=== PATIENT | female | born 1995 | race Hispanic/Latino ===

== ENCOUNTER 2022-05-20 18:26 | Emergency (ER) | payer SELFPAY ==
[2022-05-20 19:28] LABS: BHCG - Serum Negative (NEGATIVE); Pregs Control Background? CLEAR/WHITE (CLR/WHITE); Pregs Control Bar Appear? YES (CONTROL BAR)
[2022-05-20 19:30] LABS: #Eosinphils 0.2 thou/uL (0.0-0.7); #Lymphocytes 2.3 thou/uL (1.20-3.40); #Monocytes 0.5 thou/uL (0.11-0.59); #Neutrophils 5.5 thou/uL (1.40-6.50); %Basophils 0.4 % (0.0-1.0); %Eosinophils 2.3 % (0.0-10.0); %Lymphocytes 27.3 % (21.0-51.0); %Monocytes 5.4 % (0.0-10.0); %Neutrophils 64.6 % (42.0-75.0); Hemoglobin 13.9 g/dL (12.0-16.0); Mean Corpuscular HGB CONC 32.6 g/dL (32.0-36.0); Mean Corpuscular Hemoglobin 29.2 pg (27.0-31.0); Mean Corpuscular Volume 89.6 fl (78.0-98.0); Mean Platelet Volume 8.4 fL (7.4-10.4); Platelet Count 219 10x3/uL (130-400); RBC Distribution Width 12.2 % (11.5-14.5); Red Blood Cell (RBC) Count 4.76 mill/uL (4.20-5.40); White Blood Cell (WBC) Count 8.6 10x3/uL (4.8-10.8)
[2022-05-20 19:34] LABS: Bacteria/HPF None Seen HPF (None Seen); Bilirubin Negative (Negative); Blood, Urine Negative (Negative); Clarity Clear (Clear); Glucose, Urine (Dipstick) Normal (Negative); Ketone, Urine Negative (Negative); Leukocyte 250 Leu/uL (Negative); Nitrite Negative (Negative); Protein, Urine (Dipstick) Negative (Neg-Trace); RBC/HPF 0-3 HPF (0-3); Specific Gravity, Urine 1.009 (1.002-1.036); Squamous Epithelial 0-3 HPF (0-3); Urobilinogen Normal mg/dL (Less than 2); pH, Urine 7.5 (5.0-9.0)
[2022-05-20 20:09] LABS: ALT (SGPT) 32 U/L (8-55); AST (SGOT) 33 U/L (5-34); Albumin 4.1 g/dL (3.5-5.0); Alkaline Phosphatase 102 U/L (40-110); Anion Gap 16 mmol/L (10-20); BUN (Urea Nitrogen) 9 mg/dL (7.0-18.7); Bilirubin, Total 0.2 mg/dL (0.2-1.2); Calc. Creatinine Clearance 0 mL/min (70-130); Calcium 9.1 mg/dL (7.8-10.44); Carbon Dioxide 21 mmol/L (22-29); Chloride 107 mmol/L (98-107); Estimated GFR 122; Globulin 3.2 g/dL (2.4-3.5); Glucose 86 mg/dL (70-105); Lipase 33 U/L (8-78); Potassium 4.9 mmol/L (3.5-5.1); Protein, Total 7.3 g/dL (6.0-8.3); Sodium 139 mmol/L (136-145)
[2022-05-20] MEDS ORDERED: Morphine 4 MG/ML VIAL ONE (20:10)
[2022-05-20] MEDS ORDERED: Ketorolac Tromethamine 30 MG/ML VIAL ONE (20:10)
== END 2022-05-20 21:55 | disposition home or self-care (01) ==
LOC: ERS 18:26
DX: K80.20 Calculus of gallbladder without cholecystitis without obstruction (principal); K76.0 Fatty (change of) liver, not elsewhere classified
CPT/HCPCS: 36415; 76705; 80053; 81003; 81015; 83690; 84703; 85025; 93005; 96374; 96375; J1885; J2270

== ENCOUNTER 2022-12-12 15:31 | Observation (INO) | payer SELFPAY ==
[2022-12-12] MEDS ORDERED: Ondansetron PF 4 MG/2 ML Vial ONE (16:48)
[2022-12-12 17:12] LABS: #Eosinphils 0.3 thou/uL (0.0-0.7); #Monocytes 0.5 thou/uL (0.11-0.59); #Neutrophils 6.5 thou/uL (1.40-6.50); %Basophils 0.4 % (0.0-1.0); %Eosinophils 2.7 % (0.0-10.0); %Lymphocytes 26.3 % (21.0-51.0); %Monocytes 5.2 % (0.0-10.0); %Neutrophils 65.1 % (42.0-75.0); Hemoglobin 14.9 g/dL (12.0-16.0); Mean Corpuscular HGB CONC 33.3 g/dL (32.0-36.0); Mean Corpuscular Hemoglobin 29.2 pg (27.0-31.0); Mean Corpuscular Volume 87.5 fl (78.0-98.0); Mean Platelet Volume 9.5 fL (7.4-10.4); Platelet Count 298 10x3/uL (130-400); RBC Distribution Width 13.1 % (11.5-14.5); Red Blood Cell (RBC) Count 5.11 mill/uL (4.20-5.40); White Blood Cell (WBC) Count 9.9 10x3/uL (4.8-10.8)
[2022-12-12 17:33] LABS: ALT (SGPT) 23 U/L (8-55); AST (SGOT) 22 U/L (5-34); Albumin 4.5 g/dL (3.5-5.0); Alkaline Phosphatase 101 U/L (40-110); Anion Gap 10 mmol/L (10-20); BUN (Urea Nitrogen) 8 mg/dL (7.0-18.7); Bilirubin, Total 0.2 mg/dL (0.2-1.2); CRP (Inflammatory) 0.72 mg/dL (= or < 0.5); Calc. Creatinine Clearance 0 mL/min (70-130); Calcium 10.1 mg/dL (7.8-10.44); Carbon Dioxide 27 mmol/L (22-29); Chloride 105 mmol/L (98-107); Estimated GFR 102; Globulin 3.6 g/dL (2.4-3.5); Glucose 95 mg/dL (70-105); Potassium 3.7 mmol/L (3.5-5.1); Protein, Total 8.1 g/dL (6.0-8.3); Sodium 138 mmol/L (136-145)
[2022-12-12 17:50] LABS: BHCG - Serum Negative (NEGATIVE); Pregs Control Background? CLEAR/WHITE (CLR/WHITE); Pregs Control Bar Appear? YES (CONTROL BAR)
[2022-12-12] MEDS ORDERED: Prochlorperazine 10 MG/2 ML VIAL ONE (17:58)
[2022-12-12] MEDS ORDERED: diphenhydrAMINE 50 MG/ML VIAL ONE (17:58)
[2022-12-12] MEDS ORDERED: Ketorolac Tromethamine 30 MG/ML VIAL ONE (17:59)
[2022-12-12 18:33] LABS: Bacteria/HPF 2+ HPF (None Seen); Bilirubin Negative (Negative); Blood, Urine Negative (Negative); CAUTI Indications for Culture Alt mental st,lethar; Clarity Clear (Clear); Glucose, Urine (Dipstick) Normal (Negative); Ketone, Urine Negative (Negative); Leukocyte 500 Leu/uL (Negative); Nitrite Negative (Negative); Protein, Urine (Dipstick) Negative (Neg-Trace); RBC/HPF 0-3 HPF (0-3); Specific Gravity, Urine 1.003 (1.002-1.036); Squamous Epithelial 0-3 HPF (0-3); Urobilinogen Normal mg/dL (Less than 2)
[2022-12-12 18:34] LABS: Urine Culture Reflex No No
[2022-12-12] MEDS ORDERED: Ondansetron ODT 4 MG TAB PO PRN (20:54)
[2022-12-12] MEDS ORDERED: Ondansetron PF 4 MG/2 ML Vial IVP PRN (20:54)
[2022-12-12] MEDS ORDERED: Acetaminophen 325 MG TAB PO PRN (20:54)
[2022-12-12] MEDS ORDERED: hydrALAZINE 20 MG/ML VIAL SLOW IVP PRN (20:54)
[2022-12-12] MEDS ORDERED: Aspirin Chewable 81 MG TAB PO SCH (22:00)
[2022-12-12] MEDS ORDERED: Aspirin Chewable 81 MG TAB ONE (22:21)
[2022-12-12] MEDS: Atorvastatin Calcium 40 MG TAB PO SCH (22:25)
[2022-12-12 23:39] VITALS: BMI 38.0
[2022-12-13 05:11] LABS: #Eosinphils 0.2 thou/uL (0.0-0.7); #Monocytes 0.5 thou/uL (0.11-0.59); #Neutrophils 5.7 thou/uL (1.40-6.50); %Basophils 0.4 % (0.0-1.0); %Eosinophils 2.3 % (0.0-10.0); %Lymphocytes 32.8 % (21.0-51.0); %Neutrophils 59.2 % (42.0-75.0); Hemoglobin 12.9 g/dL (12.0-16.0); Mean Corpuscular HGB CONC 33.4 g/dL (32.0-36.0); Mean Corpuscular Hemoglobin 29.4 pg (27.0-31.0); Mean Corpuscular Volume 87.9 fl (78.0-98.0); Mean Platelet Volume 9.7 fL (7.4-10.4); Platelet Count 264 10x3/uL (130-400); Red Blood Cell (RBC) Count 4.39 mill/uL (4.20-5.40); White Blood Cell (WBC) Count 9.6 10x3/uL (4.8-10.8)
[2022-12-13 05:12] LABS: Hemoglobin A1c 5.2 % (4.0-6.0)
[2022-12-13 05:32] LABS: Anion Gap 9 mmol/L (10-20); BUN (Urea Nitrogen) 8 mg/dL (7.0-18.7); CRP (Inflammatory) 0.63 mg/dL (= or < 0.5); Calc. Creatinine Clearance 185 mL/min (70-130); Calcium 8.6 mg/dL (7.8-10.44); Carbon Dioxide 23 mmol/L (22-29); Cardiac Risk 5.2 (Less than 4.5); Chloride 111 mmol/L (98-107); Cholesterol 167 mg/dl (< 200 Desired); Estimated GFR 118; Glucose 110 mg/dL (70-105); HDL Cholesterol 32 mg/dL (>60 Neg Risk); LDL Cholesterol, Calculated 108 mg/dL; Magnesium 2.1 mg/dL (1.6-2.6); Potassium 3.8 mmol/L (3.5-5.1); Sodium 139 mmol/L (136-145); Triglycerides 136 mg/dL (Less than 150)
[2022-12-13] MEDS: Aspirin 81 mg Enteric Coated Tablet PO SCH (08:29)
[2022-12-13] MEDS: Ciprofloxacin 500 MG TAB PO SCH (20:45)
[2022-12-13] MEDS: Atorvastatin Calcium 40 MG TAB PO SCH (20:45)
[2022-12-13 22:30] LABS: Amphetamine Not Detected (NotDetected); Barbiturates Screen Not Detected (NotDetected); Benzodiazepine Screen Not Detected (NotDetected); Cocaine Metabolite Screen Not Detected (NotDetected); Methadone Not Detected (NotDetected); Methamphetamine Not Detected (NotDetected); Opiate Screen Not Detected (NotDetected); Oxycodone Screen Not Detected (NotDetected); Phencyclidine (PCP) Not Detected (NotDetected); THC/Cannabinoid Screen Not Detected (NotDetected); Tricyclic Screen Not Detected (NotDetected)
[2022-12-14 05:04] LABS: #Basophils 0.1 thou/uL (0.0-0.2); #Eosinphils 0.3 thou/uL (0.0-0.7); #Monocytes 0.5 thou/uL (0.11-0.59); #Neutrophils 6.4 thou/uL (1.40-6.50); %Basophils 0.5 % (0.0-1.0); %Eosinophils 2.6 % (0.0-10.0); %Lymphocytes 29.6 % (21.0-51.0); %Monocytes 5.3 % (0.0-10.0); %Neutrophils 61.8 % (42.0-75.0); Hemoglobin 13.4 g/dL (12.0-16.0); Mean Corpuscular HGB CONC 33.8 g/dL (32.0-36.0); Mean Corpuscular Hemoglobin 29.8 pg (27.0-31.0); Mean Corpuscular Volume 88.2 fl (78.0-98.0); Mean Platelet Volume 9.6 fL (7.4-10.4); Platelet Count 272 10x3/uL (130-400); RBC Distribution Width 12.8 % (11.5-14.5); Red Blood Cell (RBC) Count 4.49 mill/uL (4.20-5.40); White Blood Cell (WBC) Count 10.3 10x3/uL (4.8-10.8)
[2022-12-14 05:40] LABS: Anion Gap 11 mmol/L (10-20); BUN (Urea Nitrogen) 12 mg/dL (7.0-18.7); Calc. Creatinine Clearance 167 mL/min (70-130); Calcium 9.1 mg/dL (7.8-10.44); Carbon Dioxide 25 mmol/L (22-29); Chloride 105 mmol/L (98-107); Estimated GFR 104; Glucose 118 mg/dL (70-105); Potassium 3.6 mmol/L (3.5-5.1); Sodium 137 mmol/L (136-145)
[2022-12-14] MEDS: Ciprofloxacin 500 MG TAB PO SCH (05:47)
[2022-12-14 06:57] LABS: Free T4 (Free Thyroxine) 0.73 ng/dL (0.70-1.48)
[2022-12-14] MEDS: Aspirin 81 mg Enteric Coated Tablet PO SCH (08:21)
[2022-12-14] MEDS ORDERED: Magnevist 469MG/ML 20 ML VIAL ONE (08:46)
[2022-12-14 15:55] VITALS: BP 114/58; TEMP 98.8
== END 2022-12-14 17:32 | disposition home or self-care (01) ==
LOC: ERS 15:31 → ERHOLD 19:49 → INTOOBSV 19:49 → 2SW 23:26
PROVIDERS: ADMIT Student in an Organized Health Care Education/Training Program; ATTEND Family Medicine
DX: R51.9 Headache, unspecified (principal); R20.2 Paresthesia of skin; R94.6 Abnormal results of thyroid function studies; I08.9 Rheumatic multiple valve disease, unspecified; E66.01 Morbid (severe) obesity due to excess calories; Z68.38 Body mass index [BMI] 38.0-38.9, adult; Z79.82 Long term (current) use of aspirin; Z79.899 Other long term (current) drug therapy
CPT/HCPCS: 36415; 36416; 70450; 70546; 70551; 80048; 80053; 80061; 80306; 81001; 83036; 83735; 84439; 84443; 84481; 84484; 84703; 85025; 85652; 86140; 93005; 93306; 96361; 96374; 96375; A9579; G0378; J0780; J1200; J1885; J2405